=== PATIENT | female | born 1970 | race Caucasian/White ===

== ENCOUNTER 2016-11-11 11:37 | Emergency (ER) | payer MEDICARE, OTHER ==
[~2016-11-11] VITALS: Ht 162.6 cm; Wt 65.3 kg
[2016-11-11 11:39] VITALS: BP 164/102; PULSE 100; RESP 26; TEMP 97; O2SAT 95
--- NOTE | 2016-11-11 11:45 | NUR ---
Patient to ER bed 2 to gown for evaluation. Side rails up. Report given to Bishop DAN.
--- NOTE | 2016-11-11 11:46 | NUR ---
ER Dr. Stack at bedside examining patient.
[2016-11-11] MEDS ORDERED: NACL 0.9% 1,000 ML IV SCH (11:52)
[2016-11-11] MEDS ORDERED: ALBUTEROL SULFATE 0.083% 2.5 MG/3 ML VIAL.NEB IH ONE ×2 (12:00→13:30)
[2016-11-11] MEDS ORDERED: methylPREDNISolone SOD SUCC/PF 62.5 MG/ML VIAL IVP ONE (12:00)
[2016-11-11] MEDS ORDERED: IPRATROPIUM BROM 0.5 MG/2.5 ML VIAL.NEB (ATROVENT) IH ONE (12:00)
[2016-11-11 12:07] LABS: BLOOD GAS BASE EXCESS -4.3 mmol/L (-3.0-3.0); BLOOD GAS COHb% 1.2 % (0.5-1.5); BLOOD GAS PH 7.411 (7.350-7.450); BLOOD O2Hb% 94.5 % (94.0-97.0)
[2016-11-11 12:35] LABS: CALCIUM 8.6 mg/dL (8.4-11.0); CREATININE 0.68 mg/dL (0.55-1.30); POTASSIUM 3.6 mmol/L (3.5-5.1)
[2016-11-11 12:36] LABS: BASOPHILS % (AUTO) 0.5 % (0.0-2.0); EOSINOPHILS # (AUTO) 0.2 K/uL (0.0-0.4); EOSINOPHILS % (AUTO) 2.4 % (0.0-4.0); HEMOGLOBIN 9.8 g/dL (12.0-16.0); LYMPHOCYTES # (AUTO) 1.4 K/uL (1.0-5.5); LYMPHOCYTES % (AUTO) 17.8 % (20.5-51.5); MEAN CORPUSCULAR HEMOGLOBIN 23 pg (27-31); MEAN CORPUSCULAR HGB CONC 31 % (32-36); MEAN CORPUSCULAR VOLUME 74 fL (79.0-98.0); MONOCYTES # (AUTO) 0.4 K/uL (0.0-1.0); MONOCYTES % (AUTO) 4.7 % (1.7-9.3); NEUTROPHILS # (AUTO) 5.6 K/uL (1.8-7.7); NEUTROPHILS % (AUTO) 74.6 % (40.0-70.0); RED CELL DISTRIBUTION WIDTH 17.5 % (9.0-15.0); WHITE BLOOD COUNT (AUTO) 7.6 K/uL (4.8-10.8)
[2016-11-11 12:39] LABS: ALBUMIN 3.8 g/dL (3.4-4.8); TOTAL BILIRUBIN 0.2 mg/dL (0.0-1.0); TOTAL PROTEIN, SERUM 7.7 g/dL (6.4-8.3)
[2016-11-11 13:01] LABS: PLATELET COUNT (AUTO) 306 K/uL (130-430)
[2016-11-11 13:16] LABS: BILIRUBIN,URINE NEGATIVE (NEGATIVE); BLOOD, URINE NEGATIVE (NEGATIVE); CLARITY/URINE CLEAR (CLEAR); COLOR,URINE YELLOW (YELLOW); GLUCOSE,URINE NEGATIVE (NEGATIVE); KETONES,URINE NEGATIVE (NEGATIVE); LEUKOCYTE ESTERASE ,URINE NEGATIVE (NEGATIVE); NITRITE, URINE NEGATIVE (NEGATIVE); PROTEIN URINE NEGATIVE (NEGATIVE); UROBILINOGEN,URINE 0.2 (0.2-1.0)
--- NOTE | 2016-11-11 13:36 | NUR ---
Pt sitting up semi moise's, no acute distress. States that she feels better when she "first got here". RT at bedside for repeat breathing tx.
--- NOTE | 2016-11-11 13:47 | NUR ---
IVF infusing to LAC with no s/sx of infiltration at this time.
--- NOTE | 2016-11-11 14:29 | NUR ---
Pt states that she feels much better. Cough improved. Patient given written and verbal discharge instructions and verbalizes understanding. ER MD discussed with patient the results and treatment provided. Given copies of tests performed in ER. Patient in stable condition. ID arm band removed. IV catheter removed intact and dressing applied, no active bleeding. Rx of augmentin, prednisone, albuterol given. Patient educated on pain management and to follow up with PMD. Pain Scale 0/10. Opportunity for questions provided and answered.
[2016-11-11 14:30] VITALS: BP 145/87; PULSE 81; RESP 16; TEMP 97; O2SAT 100
== END 2016-11-11 14:30 | disposition home or self-care (01) ==
LOC: SED 11:37
DX: R05 Cough (principal); R07.89 Other chest pain; R06.02 Shortness of breath; J45.909 Unspecified asthma, uncomplicated
CPT/HCPCS: 36415; 36600; 71020; 80053; 81003; 81025; 82803; 83605; 85025; 87040; 94640; 96361; 96374; 99285; J2930; J7030

== ENCOUNTER 2021-11-22 22:31 | Emergency (ER) | payer OTHER ==
[~2021-11-22] VITALS: Ht 162.6 cm; Wt 67.1 kg
[2021-11-22 22:55] VITALS: BP_SYST 156
[2021-11-22] MEDS ORDERED: ENALAPRILAT DIHYDRATE 1.25 MG/ML VIAL IVP ONE (23:30)
[2021-11-23 00:23] LABS: BASOPHILS # (AUTO) 0.1 K/uL (0.0-0.2); BASOPHILS % (AUTO) 1.1 % (0.0-2.0); EOSINOPHILS # (AUTO) 0.3 K/uL (0.0-0.4); EOSINOPHILS % (AUTO) 4.3 % (0.0-4.0); HEMATOCRIT 32.3 % (36-48); HEMOGLOBIN 9.9 g/dL (12.0-16.0); LYMPHOCYTES # (AUTO) 1.9 K/uL (1.0-5.5); LYMPHOCYTES % (AUTO) 31.2 % (20.5-51.5); MEAN CORPUSCULAR HEMOGLOBIN 22 pg (27-31); MEAN CORPUSCULAR HGB CONC 31 % (32-36); MEAN CORPUSCULAR VOLUME 71 fL (79.0-98.0); MONOCYTES # (AUTO) 0.3 K/uL (0.0-1.0); MONOCYTES % (AUTO) 5.2 % (1.7-9.3); NEUTROPHILS # (AUTO) 3.5 K/uL (1.8-7.7); NEUTROPHILS % (AUTO) 58.2 % (40.0-70.0); PLATELET COUNT (AUTO) 313 K/uL (130-430); RED BLOOD CELL COUNT(AUTO) 4.57 MIL/uL (4.2-6.2); RED CELL DISTRIBUTION WIDTH 19.7 % (9.0-15.0)
[2021-11-23 00:46] LABS: POTASSIUM 3.8 mmol/L (3.5-5.1)
[2021-11-23 00:47] LABS: CREATININE 0.63 mg/dL (0.55-1.30)
[2021-11-23 00:52] LABS: TOTAL BILIRUBIN 0.2 mg/dL (0.0-1.0)
[2021-11-23 00:53] LABS: ALBUMIN 3.4 g/dL (3.4-4.8)
[2021-11-23] MEDS ORDERED: hydrALAZINE HCL 20 MG/ML VIAL IVP ONE (01:15)
[2021-11-23] MEDS ORDERED: hydrALAZINE HCL 20 MG/ML VIAL ONE ×2 (01:43→02:19)
[2021-11-23] MEDS ORDERED: LOSA1TAB40 PO (03:20)
[2021-11-23 03:25] VITALS: BP_SYST 167
== END 2021-11-23 03:36 | disposition home or self-care (01) ==
LOC: SED 22:31
DX: I10 Essential (primary) hypertension (principal); J45.909 Unspecified asthma, uncomplicated; Z79.899 Other long term (current) drug therapy
CPT/HCPCS: 36415; 71045; 80053; 83880; 84484; 85025; 93005; 96374; 96375; 99291; J0360

== ENCOUNTER 2022-02-16 19:23 | Emergency (ER) | payer OTHER ==
[~2022-02-16] VITALS: Ht 162.6 cm; Wt 72.6 kg
[~2022-02-16 19:23] MED LIST: LOSA1TAB40 PO
[2022-02-16 20:10] VITALS: BP_SYST 144
[2022-02-16 21:30] LABS: BASOPHILS # (AUTO) 0.1 K/uL (0.0-0.2); BASOPHILS % (AUTO) 0.6 % (0.0-2.0); EOSINOPHILS # (AUTO) 0.2 K/uL (0.0-0.4); EOSINOPHILS % (AUTO) 1.6 % (0.0-4.0); HEMATOCRIT 37.7 % (36-48); HEMOGLOBIN 12.6 g/dL (12.0-16.0); LYMPHOCYTES # (AUTO) 2.3 K/uL (1.0-5.5); LYMPHOCYTES % (AUTO) 17.5 % (20.5-51.5); MEAN CORPUSCULAR HEMOGLOBIN 28 pg (27-31); MEAN CORPUSCULAR HGB CONC 33 % (32-36); MEAN CORPUSCULAR VOLUME 85 fL (79.0-98.0); MONOCYTES # (AUTO) 0.8 K/uL (0.0-1.0); MONOCYTES % (AUTO) 6.2 % (1.7-9.3); NEUTROPHILS # (AUTO) 9.6 K/uL (1.8-7.7); NEUTROPHILS % (AUTO) 74.1 % (40.0-70.0); PLATELET COUNT (AUTO) 266 K/uL (130-430); RED BLOOD CELL COUNT(AUTO) 4.45 MIL/uL (4.2-6.2); RED CELL DISTRIBUTION WIDTH 20.8 % (9.0-15.0); WHITE BLOOD COUNT (AUTO) 12.9 K/uL (4.8-10.8)
[2022-02-16 21:36] LABS: BILIRUBIN,URINE NEGATIVE (NEGATIVE); BLOOD, URINE 3+ (NEGATIVE); COLOR,URINE ORANGE (YELLOW); GLUCOSE,URINE NEGATIVE (NEGATIVE); KETONES,URINE NEGATIVE (NEGATIVE); LEUKOCYTE ESTERASE ,URINE 3+ (NEGATIVE); NITRITE, URINE POSITIVE (NEGATIVE); PROTEIN URINE TRACE (NEGATIVE); UROBILINOGEN,URINE 0.2 (0.2-1.0)
[2022-02-16 21:50] LABS: CALCIUM 8.2 mg/dL (8.4-11.0); CREATININE 0.76 mg/dL (0.55-1.30); POTASSIUM 3.8 mmol/L (3.5-5.1)
[2022-02-16 21:56] LABS: ALBUMIN 3.3 g/dL (3.4-4.8)
[2022-02-16 21:57] LABS: CLARITY/URINE HAZY (CLEAR)
[2022-02-16 21:59] LABS: BACTERIA,URINE MODERATE /HPF (None Seen); WBC,URINE 50-80 /HPF (0-3)
[2022-02-16 22:15] LABS: C-REACTIVE PROTEIN QUANT 0.7 mg/dL (0-0.5)
[2022-02-16] MEDS ORDERED: cefTRIAXone 1 GM in LIDOCAINE 1%, 20 ML MDV 2.1 ML IM ONE (22:15)
[2022-02-16 22:33] LABS: TOTAL BILIRUBIN 0.3 mg/dL (0.0-1.0)
[2022-02-16] MEDS ORDERED: PHEN-727 PO (23:15)
[2022-02-16] MEDS ORDERED: CEPH-548 PO (23:15)
[2022-02-16 23:28] VITALS: BP_SYST 144
== END 2022-02-16 23:28 | disposition home or self-care (01) ==
LOC: SED 19:23
DX: N12 Tubulo-interstitial nephritis, not specified as acute or chronic (principal); I10 Essential (primary) hypertension; J45.909 Unspecified asthma, uncomplicated; Z79.899 Other long term (current) drug therapy
CPT/HCPCS: 36415; 74176; 76376; 80053; 81000; 82150; 83690; 84703; 85025; 86140; 87086; 96372; 99284; J0696; J2001

== ENCOUNTER 2022-08-27 16:05 | Emergency (ER) | payer OTHER ==
[~2022-08-27] VITALS: Ht 162.6 cm; Wt 76.2 kg
[~2022-08-27 16:05] MED LIST changes: +CEPH-548 PO; +PHEN-727 PO
[2022-08-27 16:28] VITALS: BP_SYST 124
[2022-08-27 16:30] VITALS: BP_SYST 124
== END 2022-08-27 18:04 | disposition home or self-care (01) ==
LOC: SED 16:05
DX: S00.402A Unspecified superficial injury of left ear, initial encounter (principal); J45.909 Unspecified asthma, uncomplicated; I10 Essential (primary) hypertension; Z79.899 Other long term (current) drug therapy; W21.00XA Struck by hit or thrown ball, unspecified type, initial encounter; Y93.89 Activity, other specified; Y92.89 Other specified places as the place of occurrence of the external cause; Y99.8 Other external cause status
CPT/HCPCS: 99281